=== PATIENT | male | born 1935 | race Caucasian/White ===

== ENCOUNTER 2024-12-18 10:37 | Outpatient (CLI) | payer MEDICARE ==
[~2024-12-18 10:37] MED LIST: Iopamidol 370 76% 100 ML VIAL ONE
== END 2024-12-18 10:38 | disposition home or self-care (01) ==
LOC: CSHCT 10:37
PROVIDERS: ATTEND Thoracic Surgery (Cardiothoracic Vascular Surgery)
DX: I65.21 Occlusion and stenosis of right carotid artery (principal)
CPT/HCPCS: 70498; 82565